=== PATIENT | female | born 1975 | race Caucasian/White ===

== ENCOUNTER 2018-12-26 09:15 | Emergency (ER) | payer BC ==
--- NOTE | 2018-12-26 09:42 | UC ---
Lower Extremity/Ankle HPI - HPI Summary HPI Summary: Patient is a 43 year old female , who presents today to the urgent care with right ankle and foot pain since yesterday. She reports that she missed last step going down the stairs and rolled in her ankle. Pain is mainly at the ankle and mid to lateral aspect of the foot. She is able to be her weight but it is very painful. She has eyes that and took Aleve this morning. - History of Current Complaint Stated Complaint: RT FOOT/ANKLE INJ Time Seen by Provider: 12/26/18 09:39 Hx Obtained From: Patient Hx Last Menstrual Period: 11/13/14 ?: No - status post uterine ablation - Allergies/Home Medications Allergies/Adverse Reactions: Allergies Allergy/AdvReac Type Severity Reaction Status Date / Time erythromycin base Allergy Hives Verified 12/26/18 09:44 Penicillins Allergy Anaphylatic Verified 12/26/18 09:44 Shock PMH/Surg Hx/FS Hx/Imm Hx - Additional Past Medical History Additional PMH: Past Medical History : Mitral wall prolapse Past Surgical History: 2 C-sections Family History : non contributory Social History : Occasional alcohol, non smoker, no drug use. Previously Healthy: Yes - Surgical History Surgical History: Yes Surgery Procedure, Year, and Place: 2 c-sections, eye surgery - Family History Known Family History: Positive: Non-Contributory - Social History Alcohol Use: Occasionally Substance Use Type: None Smoking Status (MU): Never Smoked Tobacco Review of Systems All Other Systems Reviewed And Are Negative: Yes Constitutional: Positive: Negative Skin: Positive: Negative Eyes: Positive: Negative ENT: Positive: Negative Respiratory: Positive: Negative Cardiovascular: Positive: Negative Gastrointestinal: Positive: Negative Genitourinary: Positive: Negative Motor: Positive: Negative Neurovascular: Positive: Negative Musculoskeletal: Positive: Arthralgia - Right ankle and right foot Neurological: Positive: Negative Is Patient Immunocompromised?: No Physical Exam - Summary Physical Exam Summary: Vital Signs Reviewed: Yes A+Ox3, no distress Eyes: Conjunctiva Clear ENT: Hearing grossly normal neck: supple Respiratory: Positive: No respiratory distress, No accessory muscle use Cardiovascular: skin color reflect adequate perfusion Neurological: Positive: Alert, ambulatory without difficulty Psychological: Positive: Normal Response To Family Skin: Positive: no rash, no ecchymosis Right Ankle/Feet examination: Ankle: Gait: Antalgic Inspection/palpation: No significant bruising, or swelling noted. There is tenderness to palpation in the area of ATFL, CFL.There is mild tenderness to palpation of the medial malleolus and there is tenderness to palpation at lateral malleolus Ankle mortise appears intact. ROM: Slightly limited but painful range of motion Strength: 5/5 Special tests:Anterior drawer test is without much pain. Talar tilt test is equal . Negative Squeeze and External Rotation tests Ankle of other side is negative for bruising, swelling or tenderness to palpation. It has full ROM, strength and stability. Feet: Insp/Palp: Feet normal to inspection. No significant swelling or bruising is noted. There is tenderness to palpation in the dorsum of the foot in the mid foot area of the tarsometatarsal joints. There is tenderness to palpation in the cuboid and base of the fifth metatarsal. Skin: No scars, rashes, lesions or ecchymosis. 2+ posterior tibial and dorsalis pedis pulse bilaterally. Neuro: Sensation to light touch is intact in the lower extremities bilaterally. Coordination normal. Triage Information Reviewed: Yes Vital Signs Reviewed: Yes Diagnostics - Radiology No standard instances Radiology Interpretation Completed By: Radiologist - X-ray of the right ankle and the foot:BONES: There is no displaced fracture. There are plantar calcaneal enthesophytes. JOINTS: There is osteoarthritis of the first MTP joint. ALIGNMENT : There is no dislocation. SOFT TISSUES: Unremarkable. OTHER FINDINGS: None. IMPRESSION: NO ACUTE OSSEOUS INJURY. IF SYMPTOMS PERSIST, RECOMMEND REPEAT IMAGING. Lower Extremity Course/Dx - Course Course Of Treatment: During the visit today, we obtained x-rays of right ankle and foot: BONES: There is no displaced fracture. There are plantar calcaneal enthesophytes. JOINTS: There is osteoarthritis of the first MTP joint. ALIGNMENT: There is no dislocation. SOFT TISSUES: Unremarkable. OTHER FINDINGS: None. IMPRESSION: NO ACUTE OSSEOUS INJURY. IF SYMPTOMS PERSIST, RECOMMEND REPEAT IMAGING. I spoke with Dr. Ledbetter and he agrees with a possible small avulsion fracture of the distal fibula. Plan for Cam boot and crutches and follow-up with orthopedics. We discussed the findings and further plan. I will prescribe the medication to the pharmacy . Patient expressed understanding . - Differential Dx/Diagnosis Provider Diagnosis: Right foot sprain, Right ankle sprain, Avulsion fracture of distal end of fibula Discharge - Sign-Out/Discharge Documenting (check all that apply): Patient Departure All imaging exams completed and their final reports reviewed: Yes - Discharge Plan Condition: Stable Disposition: HOME Patient Education Materials: Ankle Fracture (ED), Ankle Sprain (ED), Foot Sprain (ED) Referrals: Joshua Alexander MD [Medical Doctor] - 3 Days No Primary Care Phys,NOPCP [Primary Care Provider] - Additional Instructions: Continue cam boot walker and crutches Pain control as needed with Aleve. Ice 15 minutes at a time 3-4 times a day Follow up with orthopedics in 2-3 days Patients blood pressure slightly high in Urgent care today , plan follow up with PCP for better control Return to Urgent care / ER if symptoms get worse. - Billing Disposition and Condition Condition: STABLE Disposition: Home
[2018-12-26 09:47] VITALS: BP 131/77
== END 2018-12-26 10:52 | disposition home or self-care (01) ==
LOC: UCCORT 09:15
DX: S93.401A Sprain of unspecified ligament of right ankle, initial encounter (principal); S93.601A Unspecified sprain of right foot, initial encounter; S82.831A Other fracture of upper and lower end of right fibula, initial encounter for closed fracture; W10.9XXA Fall (on) (from) unspecified stairs and steps, initial encounter; Y92.9 Unspecified place or not applicable; M77.31 Calcaneal spur, right foot; M19.071 Primary osteoarthritis, right ankle and foot; I34.1 Nonrheumatic mitral (valve) prolapse
CPT/HCPCS: 99213; G0463